=== PATIENT | male | born 1975 | race Caucasian/White ===

== ENCOUNTER 2016-05-08 10:58 | Observation (INO) | payer BC ==
[~2016-05-08] VITALS: Ht 177.8 cm; Wt 105.8 kg
[2016-05-08] MEDS ORDERED: MISCCAP80 PO (11:26)
[2016-05-08] MEDS ORDERED: CHOL1000 PO (11:26)
[2016-05-08 11:32] LABS: HEMATOCRIT 43.8 % (42-52); MEAN CELL VOLUME 84.1 fL (80-100); MEAN CORPUSCULAR HEMOGLOBIN 30.5 pg (25-34); MEAN CORPUSCULAR HGB CONC 36.3 g/dl (32-36); MEAN PLATELET VOLUME 11.8 fL (7.4-10.4); PLATELET COUNT 193 K/uL (130-400); RED BLOOD COUNT 5.21 M/uL (4.7-6.1); WHITE BLOOD COUNT 6.65 K/uL (4.8-10.8)
--- NOTE | 2016-05-08 11:37 | DIAGNOSTIC IMAGING REPORT ---
CHEST ONE VIEW PORTABLE CLINICAL HISTORY: syncope COMPARISON STUDY: No previous studies for comparison. FINDINGS: The heart is at the upper limits of normal in size. There is no failure. There is no focal pulmonary consolidation. There are no pleural effusions. There is a mild spinal curvature.[ IMPRESSION: No active disease in the chest. Electronically signed by: Fish Nolasco M.D. 05/08/2016 11:36 AM Dictated Date/Time: 05/08/2016 11:35 AM
[2016-05-08 11:46] LABS: PROTHROMBIN TIME (PATIENT) 10.9 SECONDS (9.0-12.0)
[2016-05-08 11:52] LABS: BUN/CREATININE RATIO 25.3 (10-20); CALCIUM 9.6 mg/dl (8.5-10.1); CREATININE 0.98 mg/dl (0.60-1.40); POTASSIUM 3.7 mmol/L (3.5-5.1)
[2016-05-08] MEDS ORDERED: SODIUM CHLORIDE 0.9% 1000ML 1,000 ML IV STA (11:52)
[2016-05-08] MEDS ORDERED: ACETAMINOPHEN 500 MG TAB PO STA (11:52)
--- NOTE | 2016-05-08 11:54 | EMERGENCY ROOM VISIT NOTE ---
History Report prepared by Asya: Jason Bae Under the Supervision of: Dr. Harvey Henry M.D. First contact with patient: 11:44 Chief Complaint: CARDIAC ASSESSMENT Stated Complaint: AFIB/SYNCOPE Nursing Triage Summary: patient states he was working stood up and "passed out hitting left side of head." patient reports having a "slight headache" patient has no hx of afib. patient is currently in afib. denies sob denies chest pain. History of Present Illness The patient is a 40 year old male who presents to the Emergency Room with complaints of a resolved episode of syncope that occurred at approximately 1030 today. The patient become lightheaded just prior to passing out after standing up at work today, however there was little warning. He hit his head when he fell , and has some head pain. He did not experience any lightheadedness prior to this morning. The patient denies any chest pain, shortness of breath, or abdominal pain. He also denies any recent palpitations. He does not have a history of syncope. The patient denies any history of atrial fibrillation, although his mother does. The patient occasionally drinks alcohol. He was not drinking heavily this weekend and only had one glass of wine last night. He does not smoke. He denies any major medical problems. Source of History: patient Onset: 1030 today Position: other (global) Quality: other (syncope) Timing: resolved Associated Symptoms: + headache, No SOB, No abdominal pain, No chest pain Review of Systems See HPI for pertinent positives & negatives. A total of 10 systems reviewed and were otherwise negative. Past Medical & Surgical Medical Problems: (1) Atrial fibrillation (2) No known health problems (3) Syncope and collapse Family History FH: atrial fibrillation Social History Smoking Status: Never Smoker Alcohol Use: occasionally Marital Status: Housing Status: lives with family Occupation Status: employed Current/Historical Medications Scheduled Apixaban (Eliquis), 5 MG PO BID Cholecalciferol (Vitamin D3), 5,000 INTER.UNIT PO DAILY Metoprolol Succinate (Toprol Xl), 1 TAB PO DAILY Probiotic Product (Probiotic), 1 CAP PO DAILY Allergies Coded Allergies: No Known Allergies (Unverified , 05/08/16) Physical Exam Vital Signs Date Time Temp Pulse Resp B/P Pulse Ox O2 Delivery O2 Flow Rate FiO2 05/08/16 12:29 77 20 123/81 97 Room Air 05/08/16 11:34 90 18 131/93 96 Room Air 05/08/16 11:07 85 05/08/16 11:02 96 Room Air 05/08/16 11:02 96 Room Air 05/08/16 11:02 36.5 87 18 131/93 96 Room Air Physical Exam GENERAL: Patient is a healthy-appearing well-nourished HEAD: There is a quarter-sized contusion on the left side of the top of his head. EYES: Ocular movements intact pupils equal and react to light OROPHARYNX mucous membranes are moist no exudates present no erythema or edema present NECK: Supple no nuchal rigidity CHEST: Good equal expansion LUNGS: Clear and equal to auscultation CARDIAC: Normal S1 and S2 ABDOMEN: Soft nontender no guarding BACK: No CVA tenderness EXTREMITIES: No pain upon palpation normal muscle strength in all groups no clubbing cyanosis or edema NEURO: Patient is following commands is answering questions appropriately. Alert and oriented x3 Cranial Nerves 2-12 grossly intact Medical Decision & Procedures ER Provider Diagnostic Interpretation: Radiology results as stated below per my review and radiologist interpretation: CHEST ONE VIEW PORTABLE CLINICAL HISTORY: syncope COMPARISON STUDY: No previous studies for comparison. FINDINGS: The heart is at the upper limits of normal in size. There is no failure. There is no focal pulmonary consolidation. There are no pleural effusions. There is a mild spinal curvature.[ IMPRESSION: No active disease in the chest. Electronically signed by: Fish Nolasco M.D. 05/08/2016 11:36 AM Dictated Date/Time: 05/08/2016 11:[address] HEAD WITHOUT CONTRAST (CT) CLINICAL HISTORY: Head pain status post trauma. Syncope. COMPARISON STUDY: No previous studies for comparison. TECHNIQUE: Axial CT of the brain is performed from the vertex to the skull base. IV contrast was not administered for this examination. CT DOSE: 788.63 mGycm FINDINGS: No intra or extra-axial mass lesions are visualized. There is no CT evidence of acute cortical infarction. There is no evidence of midline shift. There is no acute hemorrhage. No calvarial fractures are visualized. There is no evidence of pathologic ventricular dilatation. There is no evidence of acute sinusitis IMPRESSION: Normal noncontrast head CT. Electronically signed by: Fish Nolasco M.D. 05/08/2016 1:00 PM Dictated Date/Time: 05/08/2016 12:59 PM Laboratory Results 05/08/16 11:09 05/08/16 11:09 Test 05/08/16 11:09 05/08/16 11:24 Red Blood Count 5.21 M/uL (4.7-6.1) Mean Corpuscular Volume 84.1 fL (80-100) Mean Corpuscular Hemoglobin 30.5 pg (25-34) Mean Corpuscular Hemoglobin Concent 36.3 g/dl (32-36) RDW Standard Deviation 38.8 fL (36.4-46.3) RDW Coefficient of Variation 12.8 % (11.5-14.5) Mean Platelet Volume 11.8 fL (7.4-10.4) Prothrombin Time 10.9 SECONDS (9.0-12.0) Prothromb Time International Ratio 1.0 (0.9-1.1) Activated Partial Thromboplast Time 26.2 SECONDS (21.0-31.0) Partial Thromboplastin Ratio 1.0 Anion Gap 8.0 mmol/L (3-11) Est Creatinine Clear Calc Drug Dose 126.2 ml/min Estimated GFR () 112.9 Estimated GFR (Non- 97.4 BUN/Creatinine Ratio 25.3 (10-20) Calcium Level 9.6 mg/dl (8.5-10.1) Total Bilirubin 0.6 mg/dl (0.2-1) Aspartate Amino Transf (AST/SGOT) 24 U/L (15-37) Alanine Aminotransferase (ALT/SGPT) 31 U/L (12-78) Alkaline Phosphatase 48 U/L (45-117) Total Protein 8.0 gm/dl (6.4-8.2) Albumin 4.3 gm/dl (3.4-5.0) Globulin 3.7 gm/dl (2.5-4.0) Albumin/Globulin Ratio 1.2 (0.9-2) Lyme Disease IgG Antibody NEG (NEG) Lyme Disease IgM Antibody NEG (NEG) Bedside Troponin I 0.000 ng/ml (0-0.045) Labs reviewed by ED physician. Medications Administered Medications (Trade) Dose Ordered Sig/Gomez Route Start Time Stop Time Status Last Admin Dose Admin Sodium Chloride (Nss 1000ml) 1,000 ml @ 999 mls/hr Q1H1M STAT IV 05/08/16 11:52 05/08/16 12:52 DC 05/08/16 12:27 999 MLS/HR Acetaminophen (Tylenol Tab) 1,000 mg NOW STAT PO 05/08/16 11:52 05/08/16 11:53 DC 05/08/16 12:26 1,000 MG Acetaminophen (Tylenol Tab) 650 mg Q4H PRN PO 05/08/16 12:45 05/09/16 15:23 DC 05/08/16 17:34 650 MG ECG Indication: syncope Rate (beats per minute): 86 Rhythm: atrial fibrillation Findings: no acute ischemic change, other (no PVCs) Comparison ECG Date: no prior available ED Course 1148: Past medical records reviewed. The patient was evaluated in room C6. A complete history and physical examination was performed. 1152: Tylenol 1000 mg PO, NSS 1000 ml @ 999 mls/hr. 1226: Discussed the case with ROCHELLE Driver Cardiology. He recommends medical admission. 1238: Spoke with ROCHELLE Mcfarland Hospitalist. The patient will be evaluated. Medical Decision Differential diagnosis: Etiologies such as vasovagal event, atrial fibrillation, infection, hypoglycemia , electrolyte abnormalities, cardiac sources, intracerebral event, toxicologic, neurologic, as well as others were entertained. This is a 40-year-old male who presents emergency department complaining of syncopal episode. The patient is in atrial fibrillation however has no idea that he is in the atrial fibrillation denies any chest pain or palpitations. I' m concerned that the atrial fibrillation may have caused the syncopal episode. I did discuss the case with the cnc mill operator who asked that the patient be admitted to the hospital. Patient was given normal saline bolus. He has a normal CAT scan of the head. Patient family were in agreement with treatment plan. Consults Time Called: 1220 Consulting Physician: ROCHELLE Driver Cardiology. Returned Call: [phone]: Discussed the case with ROCHELLE Driver Cardiology. He recommends medical admission. Additional Consults: Time Called: 1230 Consulted Physician: ROCHELLE Mcfarland Hospitalist. Returned Call: 1238 Additional Comments: 1238: Spoke with ROCHELLE Mcfarland Hospitalist. The patient will be evaluated. Impression Primary Impression: Syncope Additional Impression: Atrial fibrillation Scribe Attestation The scribe's documentation has been prepared under my direction and personally reviewed by me in its entirety. I confirm that the note above accurately reflects all work, treatment, procedures, and medical decision making performed by me. Departure Information Dispostion Being Evaluated By Hospitalist Prescriptions Metoprolol Succinate (TOPROL XL) 50 Mg Tab 1 TAB PO DAILY for 30 Days, #30 TAB 5 Refills Prov: Mynor Crockett, D.OElizabeth 05/09/16 Apixaban (ELIQUIS) 5 Mg Tab 5 MG PO BID for 30 Days, #60 TAB Prov: Gissel Simmons PA-C 05/09/16 Referrals No Doctor, Assigned (PCP) Patient Instructions [facility] Problem Qualifiers Primary Impression: Syncope Syncope type: unspecified Qualified Codes: R55 - Syncope and collapse Additional Impression: Atrial fibrillation Atrial fibrillation type: unspecified Qualified Codes: I48.91 - Unspecified atrial fibrillation
[2016-05-08 11:57] LABS: ALB/GLOB RATIO 1.2 (0.9-2); CKMB/CK RATIO 1.3 (0-3.0)
[2016-05-08] MEDS ORDERED: ONDANSETRON INJ 2 MG/ML 2 ML VIAL IV PRN (12:45)
[2016-05-08] MEDS ORDERED: ACETAMINOPHEN 325 MG TAB PO PRN (12:45)
--- NOTE | 2016-05-08 13:02 | DIAGNOSTIC IMAGING REPORT ---
CT HEAD WITHOUT CONTRAST (CT) CLINICAL HISTORY: Head pain status post trauma. Syncope. COMPARISON STUDY: No previous studies for comparison. TECHNIQUE: Axial CT of the brain is performed from the vertex to the skull base. IV contrast was not administered for this examination. CT DOSE: 788.63 mGycm FINDINGS: No intra or extra-axial mass lesions are visualized. There is no CT evidence of acute cortical infarction. There is no evidence of midline shift. There is no acute hemorrhage. No calvarial fractures are visualized. There is no evidence of pathologic ventricular dilatation. There is no evidence of acute sinusitis IMPRESSION: Normal noncontrast head CT. Electronically signed by: Fish Nolasco M.D. 05/08/2016 1:00 PM Dictated Date/Time: 05/08/2016 12:59 PM
[2016-05-08 13:45] LABS: LYME DISEASE AB IGG NEG (NEG)
[2016-05-08] MEDS ORDERED: IV FLUIDS COMPLETED PRN (13:45)
[2016-05-08 13:46] LABS: LYME DISEASE AB IGM NEG (NEG)
[2016-05-08 14:00] VITALS: BP 141/86; PULSE 74; TEMP 36.9; O2SAT 98; Ht 177.8 cm; Wt 105.8 kg
--- NOTE | 2016-05-08 14:46 | History and Physical ---
History & Physical Date & Time of Service: May 08, 2016 at 14:35 Chief Complaint: Atrial Fibrillation, Syncope & Collapse Primary Care Physician: Gustavo Cruz M.D. History of Present Illness Source: patient, family, hospital records 40 yo male with medical history of pre-diabetes, presented to the ED after having a syncopal episode at work. No history of syncope. The patient had been standing for approximately one hour when he started to feel light headed and dizzy and then passed out. Witnesses saw the fall, he struck his head on concrete. He was unconscious for approximately 20 seconds and then woke up. No tonic clonic activity witnessed. He was oriented completely when he woke, he had a mild headache from hitting his head. No chest pain or palpitations. He denies any recent illnesses. He has been eating well, even recently he has been on a low carbohydrate diet. Never has any chest pain or palpitations when he exerts himself. His mother has a history of atrial fibrillation. No personal history of congenital heart disease. He drinks alcohol but no binge drinking recently, had a glass of red wine last night. Past Medical/Surgical History Pre-diabetes Kidney stone as a child Family History FH: atrial fibrillation Mother - atrial fibrillation Lung cancer, heart disease Social History Smoking Status: Never Smoker Alcohol Use: occasionally Marital Status: Occupational Status: employed Immunizations History of Influenza Vaccine: No Multi-Drug Resistant Organisms History of MDRO: No Allergies Coded Allergies: No Known Allergies (Unverified , 05/08/16) Home Medications Scheduled Cholecalciferol (Vitamin D3), 5,000 INTER.UNIT PO DAILY Probiotic Product (Probiotic), 1 CAP PO DAILY Review of Systems Constitutional: + problem reported (headache), No chills, No fatigue, No fever , No sweats, No weakness, No weight loss Eyes: No diplopia, No discharge, No eye pain, No problem reported, No redness, No worsening of vision ENT: No dental problems, No hearing loss, No nasal symptoms, No problem reported, No sore throat, No tinnitus, No trouble swallowing, No unusual epistaxis Respiratory: No cough, No dyspnea at rest, No dyspnea on exertion, No hemoptysis, No problem reported, No shortness of breath, No sputum, No wheezing Cardiovascular: No PND, No chest pain, No claudication, No edema, No orthopnea , No palpitations, No problem reported Abdomen: No GI bleeding, No constipation, No diarrhea, No nausea, No pain, No problem reported, No vomiting Musculoskeletal: No calf pain, No joint pain, No muscle pain, No problem reported, No swelling Genitourinary - Male: No dysuria, No hematuria, No urinary frequency, No urinary urgency Neurologic: No balance problems, No memory loss, No numbness/tingling, No paralysis, No problem reported, No vertigo, No weakness Psychiatric: No anhedonism, No anxiety, No depression symptoms, No insomnia, No problem reported, No substance abuse Endocrine: No excessive thirst, No excessive urination, No fatigue, No problem reported Hematologic / Lymphatic: No abnormal bleeding/bruising, No clotting problems, No night sweats, No problem reported, No swollen lymph nodes Integumentary: No bleeding, No color change, No itch, No new/changing skin lesions, No problem reported, No rash Allergic / Immunologic: No environmental allergies, No food allergies, No frequent infections, No hives, No pet sensitivities, No poor healing, No problem reported, No prolonged convalescence, No seasonal allergies Physical Exam Vital Signs Date Time Temp Pulse Resp B/P Pulse Ox O2 Delivery O2 Flow Rate FiO2 05/08/16 14:00 36.9 74 20 141/86 98 Room Air 05/08/16 13:39 84 18 116/78 97 Room Air 05/08/16 13:28 87 05/08/16 12:29 77 20 123/81 97 Room Air 05/08/16 11:34 90 18 131/93 96 Room Air 05/08/16 11:07 85 05/08/16 11:02 96 Room Air 05/08/16 11:02 96 Room Air 05/08/16 11:02 36.5 87 18 131/93 96 Room Air General Appearance: WD/WN, no apparent distress Head: normocephalic, atraumatic Eyes: normal inspection, EOMI, sclerae normal ENT: normal ENT inspection, hearing grossly normal, pharynx normal Neck: supple, no adenopathy, no JVD, trachea midline Respiratory/Chest: chest non-tender, lungs clear, normal breath sounds, no respiratory distress, no accessory muscle use Cardiovascular: no edema, no gallop, no JVD, no murmur, normal peripheral pulses, + irregularly irregular Abdomen/GI: normal bowel sounds, non tender, soft, no organomegaly Back: normal inspection, no CVA tenderness, no muscle spasm, normal range of motion Extremities/Musculoskelatal: normal inspection, no calf tenderness, normal capillary refill, no pedal edema, normal range of motion Neurologic/Psych: lead scientist II-XII nml as tested, no motor/sensory deficits, alert, normal mood/affect, normal reflexes, oriented x 3 Skin: normal color, warm/dry, no rash Lymphatic: no adenopathy Diagnostics Laboratory Results Results Past 24 Hours Test 05/08/16 11:09 05/08/16 11:24 Range/Units White Blood Count 6.65 4.8-10.8 K/uL Red Blood Count 5.21 4.7-6.1 M/uL Hemoglobin 15.9 14.0-18.0 g/dL Hematocrit 43.8 42-52 % Mean Corpuscular Volume 84.1 80-100 fL Mean Corpuscular Hemoglobin 30.5 25-34 pg Mean Corpuscular Hemoglobin Concent 36.3 32-36 g/dl RDW Standard Deviation 38.8 36.4-46.3 fL RDW Coefficient of Variation 12.8 11.5-14.5 % Platelet Count 193 130-400 K/uL Mean Platelet Volume 11.8 7.4-10.4 fL Prothrombin Time 10.9 9.0-12.0 SECONDS Prothromb Time International Ratio 1.0 0.9-1.1 Activated Partial Thromboplast Time 26.2 21.0-31.0 SECONDS Partial Thromboplastin Ratio 1.0 Sodium Level 139 136-145 mmol/L Potassium Level 3.7 3.5-5.1 mmol/L Chloride Level 104 98-107 mmol/L Carbon Dioxide Level 27 21-32 mmol/L Anion Gap 8.0 3-11 mmol/L Blood Urea Nitrogen 25 7-18 mg/dl Creatinine 0.98 0.60-1.40 mg/dl Est Creatinine Clear Calc Drug Dose 126.2 ml/min Estimated GFR () 112.9 Estimated GFR (Non- 97.4 BUN/Creatinine Ratio 25.3 10-20 Random Glucose 94 70-99 mg/dl Calcium Level 9.6 8.5-10.1 mg/dl Total Bilirubin 0.6 0.2-1 mg/dl Aspartate Amino Transf (AST/SGOT) 24 15-37 U/L Alanine Aminotransferase (ALT/SGPT) 31 12-78 U/L Alkaline Phosphatase 48 45-117 U/L Total Creatine Kinase 472 39-308 U/L Creatine Kinase MB 6.1 0.5-3.6 ng/ml Creatine Kinase MB Ratio 1.3 0-3.0 Total Protein 8.0 6.4-8.2 gm/dl Albumin 4.3 3.4-5.0 gm/dl Globulin 3.7 2.5-4.0 gm/dl Albumin/Globulin Ratio 1.2 0.9-2 Lyme Disease IgG Antibody NEG NEG Lyme Disease IgM Antibody NEG NEG Bedside Troponin I 0.000 0-0.045 ng/ml Diagnostic Radiology CT head - no intracranial abnormality CXR normal EKG atrial fibrillation, rate 86, no ST changes or TW changes Impression Assessment and Plan 40 yo male presenting with syncopal episode and found to have atrial fibrillation on EKG - New onset atrial fibrillation: unclear etiology in otherwise healthy 40 yo also, odd that he would not have RVR since he is young check Echo, TSH, cycle enzymes, Lyme screen negative normal K and renal function consult cardiology for recommendations CHADS score 0, no plans for anticoagulation at this point - Syncope: suspect due to arrhythmia, could have had RVR at time of syncope CT head without bleeding no focal neurologic deficits, will not get MRI cycle enzymes to rule out [place] orthostatic vitals - DVT prophylaxis: Lovenox Level of Care Telemetry Advanced Directives Existing Living Will: No Existing Power of Unmanned Aircraft Systems Roboticist: No Resuscitation Status FULL RESUSCITATION VTE Prophylaxis VTE Risk Assessment Done? Y/N: Yes Risk Level: Low Given or contraindicated: Enoxaparin (Lovenox)SQ Additional Copies To Gustavo Cruz M.D.
[2016-05-08 15:35] VITALS: BP 134/88; PULSE 94; TEMP 36.6; O2SAT 92
[2016-05-08] MEDS ORDERED: ENOXAPARIN 40 MG/0.4 ML SYR SC SCH (16:00)
--- NOTE | 2016-05-08 17:56 | Cardiology Consultation ---
Cardiology Consultation Date of Consultation: May 08, 2016. Requesting Physician: Dr. Crockett Reason for Consultation: Syncope, atrial fibrillation Pt evaluation today including: conversation w/ patient, physical exam, lab review, review of studies, review of inpatient medication list History of Present Illness This is a very pleasant 40-year-old gentleman who presents with a syncopal event. 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 He tells me they said he was out for about 10 seconds, he fell down and struck his head on the floor which she does not recall. He has never had syncope before, he did not notice palpitations. He awoke quickly and there is no evidence of seizure activity reported. He was noted to be in atrial fibrillation after the event, however he is unaware of the arrhythmia now and is not clear how long he has had. He does note that both his parents have atrial fibrillation. He probably hasn't seen a physician for several years. He does exercise regularly at the gym and has noticed no change in his exercise ability. He does monitor his heart rate sometimes using the machines, he notes that occasionally will get up to 200 bpm but he's not sure if that is real or an artifact and he does not recall that being much different over the last year and a half. He has noted no change in his exercise ability, he has been trying to lose weight his weight has remained fairly steady. He does notice that he has a "lump in his throat" when his heart rate is fast and he is exercising vigorously, he also notes that after admission today he had a discomfort/shoulder and his left arm. He doesn't recall having left arm or shoulder discomfort with exertion. He doesn't recall ever having an electrocardiogram, echocardiogram or stress test. Past Medical/Surgical History Kidney stones Family History FH: atrial fibrillation Social History Smoking Status: Never Smoker History of Alcohol Use: Yes (social) Review of Systems Constitutional: No fever, No weakness, No weight loss Respiratory: No cough, No dyspnea on exertion, No shortness of breath, No wheezing Cardiac: + problem reported (syncope), + see HPI, No PND, No chest pain, No edema, No orthopnea, No palpitations Abdomen: No GI bleeding, No diarrhea, No nausea, No pain, No vomiting Male : No nocturia more than once/night, No sexual dysfunction, No slowing stream, No urinary frequency Neurologic: No balance problems, No numbness/tingling, No paralysis, No weakness Heme: No abnormal bleeding/bruising, No clotting problems Endo: No fatigue Skin: No problem reported All Other Systems: Reviewed and Negative Allergies Coded Allergies: No Known Allergies (Unverified , 05/08/16) Medications Current Inpatient Medications Medications (Trade) Dose Ordered Sig/Gomez Route Start Time Stop Time Status Last Admin Dose Admin Enoxaparin Sodium (Lovenox Inj) 40 mg Q24H SC 05/08/16 16:00 06/07/16 15:59 05/08/16 16:00 40 MG Acetaminophen (Tylenol Tab) 650 mg Q4H PRN PO 05/08/16 12:45 06/07/16 12:44 05/08/16 17:34 650 MG Ondansetron HCl (Zofran Inj) 4 mg Q6H PRN IV 05/08/16 12:45 06/07/16 12:44 Miscellaneous (Iv Fluids Completed) 1 ea PRN PRN N/A 05/08/16 13:45 05/08/17 13:44 Influenza Virus Vaccine Quadrival (Flu Vaccine) 0.5 ml ONCE ONCE IM. 05/08/16 21:00 05/08/16 21:01 Physical Exam Vital Signs Past 12 Hours Date Time Temp Pulse Resp B/P Pulse Ox O2 Delivery O2 Flow Rate FiO2 05/08/16 16:00 Room Air 05/08/16 15:35 36.6 94 19 134/88 92 Room Air 05/08/16 14:00 36.9 74 20 141/86 98 Room Air 05/08/16 13:39 84 18 116/78 97 Room Air 05/08/16 13:28 87 05/08/16 12:29 77 20 123/81 97 Room Air 05/08/16 11:34 90 18 131/93 96 Room Air 05/08/16 11:07 85 05/08/16 11:02 96 Room Air 05/08/16 11:02 96 Room Air 05/08/16 11:02 36.5 87 18 131/93 96 Room Air Constitutional: General Apperance: heathly-appearing Level of Distress: NAD Psychiatric: Mental Status: active & alert Head: normocephalic Eyes: EOM: EOMI ENMT: normal ENT inspection, hearing grossly normal Neck: supple, no masses Lungs: Respiratory effort: no dyspnea, good air movement Auscultation: breath sounds normal, no wheezing Cardiovascular: Heart Auscultation: no murmurs, no rubs, no gallops, irregular rate rhythm Peripheral Pulses: Bruits: none appreciated Abdomen: Bowel Sounds: normal Inspection & Palpation: soft, no tenderness, guarding & rebound, no masses Musculoskeletal: normal strength (5/5 throughout) Extremities: no edema Neurologic: Cranial Nerves: grossly intact Sensation: grossly intact Data Laboratory Results: Last 24 Hours Test 05/08/16 11:09 05/08/16 11:24 White Blood Count 6.65 K/uL Red Blood Count 5.21 M/uL Hemoglobin 15.9 g/dL Hematocrit 43.8 % Mean Corpuscular Volume 84.1 fL Mean Corpuscular Hemoglobin 30.5 pg Mean Corpuscular Hemoglobin Concent 36.3 g/dl RDW Standard Deviation 38.8 fL RDW Coefficient of Variation 12.8 % Platelet Count 193 K/uL Mean Platelet Volume 11.8 fL Prothrombin Time 10.9 SECONDS Prothromb Time International Ratio 1.0 Activated Partial Thromboplast Time 26.2 SECONDS Partial Thromboplastin Ratio 1.0 Sodium Level 139 mmol/L Potassium Level 3.7 mmol/L Chloride Level 104 mmol/L Carbon Dioxide Level 27 mmol/L Anion Gap 8.0 mmol/L Blood Urea Nitrogen 25 mg/dl Creatinine 0.98 mg/dl Est Creatinine Clear Calc Drug Dose 126.2 ml/min Estimated GFR () 112.9 Estimated GFR (Non- 97.4 BUN/Creatinine Ratio 25.3 Random Glucose 94 mg/dl Calcium Level 9.6 mg/dl Total Bilirubin 0.6 mg/dl Aspartate Amino Transf (AST/SGOT) 24 U/L Alanine Aminotransferase (ALT/SGPT) 31 U/L Alkaline Phosphatase 48 U/L Total Creatine Kinase 472 U/L Creatine Kinase MB 6.1 ng/ml Creatine Kinase MB Ratio 1.3 Total Protein 8.0 gm/dl Albumin 4.3 gm/dl Globulin 3.7 gm/dl Albumin/Globulin Ratio 1.2 Lyme Disease IgG Antibody NEG Lyme Disease IgM Antibody NEG Bedside Troponin I 0.000 ng/ml Imaging: A head CT scan was unremarkable as was a chest x-ray An echocardiogram is pending EKG: On arrival atrial fibrillation at 86 bpm, normal electrocardiogram otherwise Telemetry reviewed: Atrial fibrillation with a controlled response since arrival, heart rate averaging about 80 bpm and not exceeding 100. Assessment & Plan #1. Syncope: He has had an isolated episode of syncope which occurred suddenly while standing, a vagal etiology is possible but he has never had it before and that would not explain the presence of atrial fibrillation. I'm not sure the direct relationship with atrial fibrillation but perhaps he had a pause in his rhythm before going into atrial fibrillation which would explain the syncope. I would continue to monitor him overnight, we could consider tilt testing although it is probably low yield. We may want to consider some type of chcf monitoring if telemetry is negative. #2. Atrial fibrillation: We don't know the duration of his atrial fibrillation. We need to exclude structural heart disease (an echo is pending) but based on his symptoms and exam he may have lone atrial fibrillation. We probably should try to return him to sinus rhythm, that would require anticoagulation and his rate is controlled since no other medications would be indicated at this time. For the long run I don't know if he needs anticoagulation but over the short term we probably should. We may not need to do that tonight, especially after his traumatic fall, therefore I've not start him on anticoagulation. Thank you for allowing me to participate in his care.
[2016-05-08 19:14] VITALS: BP 115/80; PULSE 84; TEMP 36.9; O2SAT 96
[2016-05-08 20:00] VITALS: O2SAT 96
[2016-05-08 20:10] LABS: CKMB/CK RATIO 1.2 (0-3.0)
[2016-05-08] MEDS ORDERED: INFLUENZA VIRUS QUAD VACCINE 0.5 ML SYR IM. ONE (21:00)
[2016-05-08] MEDS ORDERED: INFLUENZA ADMINISTRATION CHARGE ONE (21:00)
[2016-05-08 23:06] VITALS: BP 93/56; PULSE 60; TEMP 36.7; O2SAT 97
[2016-05-09] VITALS (7 sets, daily range): BP systolic 101–145; BP diastolic 67–90; PULSE 75–105; TEMP 36.6–36.7; O2SAT 94–96
[2016-05-09 03:35] LABS: CKMB/CK RATIO 1.2 (0-3.0)
--- NOTE | 2016-05-09 08:29 | Hospitalist Progress Note ---
Hospitalist Progress Note Date of Service May 09, 2016. Objective Vital Signs Date Time Temp Pulse Resp B/P Pulse Ox O2 Delivery O2 Flow Rate FiO2 05/09/16 04:00 Room Air 05/09/16 02:54 36.6 75 16 101/67 94 Room Air 05/09/16 00:01 Room Air 05/08/16 23:06 36.7 60 16 93/56 97 Room Air 05/08/16 20:00 96 Room Air 05/08/16 19:14 36.9 84 18 115/80 96 Room Air 05/08/16 16:00 Room Air 05/08/16 15:35 36.6 94 19 134/88 92 Room Air 05/08/16 14:00 36.9 74 20 141/86 98 Room Air 05/08/16 13:39 84 18 116/78 97 Room Air 05/08/16 13:28 87 05/08/16 12:29 77 20 123/81 97 Room Air 05/08/16 11:34 90 18 131/93 96 Room Air 05/08/16 11:07 85 05/08/16 11:02 96 Room Air 05/08/16 11:02 96 Room Air 05/08/16 11:02 36.5 87 18 131/93 96 Room Air Laboratory Results Last 24 Hours Test 05/08/16 11:09 05/08/16 11:24 05/08/16 19:25 05/09/16 02:52 White Blood Count 6.65 K/uL Red Blood Count 5.21 M/uL Hemoglobin 15.9 g/dL Hematocrit 43.8 % Mean Corpuscular Volume 84.1 fL Mean Corpuscular Hemoglobin 30.5 pg Mean Corpuscular Hemoglobin Concent 36.3 g/dl RDW Standard Deviation 38.8 fL RDW Coefficient of Variation 12.8 % Platelet Count 193 K/uL Mean Platelet Volume 11.8 fL Prothrombin Time 10.9 SECONDS Prothromb Time International Ratio 1.0 Activated Partial Thromboplast Time 26.2 SECONDS Partial Thromboplastin Ratio 1.0 Sodium Level 139 mmol/L Potassium Level 3.7 mmol/L Chloride Level 104 mmol/L Carbon Dioxide Level 27 mmol/L Anion Gap 8.0 mmol/L Blood Urea Nitrogen 25 mg/dl Creatinine 0.98 mg/dl Est Creatinine Clear Calc Drug Dose 126.2 ml/min Estimated GFR () 112.9 Estimated GFR (Non- 97.4 BUN/Creatinine Ratio 25.3 Random Glucose 94 mg/dl Calcium Level 9.6 mg/dl Total Bilirubin 0.6 mg/dl Aspartate Amino Transf (AST/SGOT) 24 U/L Alanine Aminotransferase (ALT/SGPT) 31 U/L Alkaline Phosphatase 48 U/L Total Creatine Kinase 472 U/L 420 U/L 305 U/L Creatine Kinase MB 6.1 ng/ml 5.1 ng/ml 3.6 ng/ml Creatine Kinase MB Ratio 1.3 1.2 1.2 Total Protein 8.0 gm/dl Albumin 4.3 gm/dl Globulin 3.7 gm/dl Albumin/Globulin Ratio 1.2 Lyme Disease IgG Antibody NEG Lyme Disease IgM Antibody NEG Bedside Troponin I 0.000 ng/ml Troponin I < 0.015 ng/ml < 0.015 ng/ml Thyroid Stimulating Hormone (TSH) 2.880 uIu/ml Assessment and Plan 40 yo male presenting with syncopal episode and found to have atrial fibrillation on EKG New onset atrial fibrillation: unclear etiology in otherwise healthy 40 yo - check Echo, TSH, trop negative x 2 sets, Lyme screen negative - normal K and renal function - cardiology on board- will wait for echo and determine if the patient needs to be on anticoagulation, CHADS score 0 Syncope: suspect due to arrhythmia, could have had RVR at time of syncope - CT head without bleeding, no focal neurologic deficits,no indication for MRI - Trop and CKMB negative x 2 sets, await final - orthostatic vitals have been negative DVT prophylaxis: Lovenox, oob CODE STATUS: FULL Disposition: From home
--- NOTE | 2016-05-09 09:49 | Discharge Instructions ---
Discharge Instructions Date of Service May 09, 2016. Admission Reason for Admission: Atrial Fibrillation, Syncope & Collapse Discharge Discharge Diagnosis / Problem: Atrial Fibrillation Discharge Goals Goal(s): Decrease discomfort, Improve function, Increase independence, Improve disease control Activity Recommendations Activity Limitations: resume your previous activity Lifting Limitations: gradually increase as tolerated Exercise/Sports Limitations: gradually increase as tolerated May Resume Sexual Activity: when tolerated Shower/Bathe: no limitations Driving or Machine Use: DO NOT DRIVE until after one month, and clearance from cardiology standpoint . Instructions / Follow-Up Instructions / Follow-Up You were admitted to [facility] with syncope (passing out) and collapse and diagnosed with atrial fibrillation (irregular heartbeat). You were evaluated with and echocardiogram - this is an ultrasound of the heart which evaluates it's function which was healthy and within normal limits. Cardiology was consulted and recommended that you DO NOT DRIVE until they clear you to do so. Follow up with cardiology within 1 week to set up an event recorder to identify how your heart is working. This will be scheduled by the outsole leveler office and you will be called with details for an appointment. During your stay here you were started on an anticoagulant, ie. blood thinner to reduce the risk of clot formation from atrial fibrillation. You have been placed on Eliquis 5 mg twice daily. Do NOT miss a dose of this medication! Follow up with your outsole leveler if you have further questions or concerns regarding this medication. Continue taking all other medications as prescribed. Follow up with your primary care physician within 1 week. Follow up with cardiology within 1-2 weeks. Current Hospital Diet Patient's current hospital diet: Regular Diet Discharge Diet Recommended Diet: AHA Diet (Heart Healthy) Procedures Procedures Performed: Echocardiogram Pending Studies Studies pending at discharge: no Medical Emergencies . Who to Call and When: Medical Emergencies: If at any time you feel your situation is an emergency, please call 911 immediately. . Non-Emergent Contact Non-Emergency issues call your: Primary Care Provider Call Non-Emergent contact if: temperature is above 100.5, you have any medication questions lightheadedness, dizziness, weakness, shortness of breath at rest or with exertion, leg cramping or pain. Call 911 or go directly to the emergency room if you experience chest pain, chest pressure or tightness, worsening shortness of breath, severe headache, of if you have other concerns regarding your health. . Past History Medical & Surgical History: (1) Atrial fibrillation (2) Syncope and collapse . "Provider Documentation" section prepared by Lynette Simmons. VTE Core Measure Inpt VTE Proph given/why not?: Enoxaparin (Lovenox)ANNIE, TElizabethEJose Stockings, SCD's
--- NOTE | 2016-05-09 10:55 | ECHOCARDIOGRAM REPORT ---
*NOTICE TO RECEIVING REPUBLICAN AGENCY This information is strictly Confidential and protected under [place] law. [place] law prohibits you from making any further disclosure of this information unless further disclosure is expressly permitted by the written consent of the person to whom it pertains or is authorized by law. A general authorization for the release of medical or other information is not sufficient for this purpose. Hospital accepts no responsibility if the information is made available to any other person, INCLUDING THE PATIENT. Interpretation Summary * Name: CHRISTA SIM Study Date: 05/09/2016 07:14 AM BP: 101/67 mmHg * Patient Location: C.2T\S\S242\S\1 HR: 75 * : 1975 (M/d/yyyy) Gender: Male Height: 70 in * Age: 40 yrs Ethnicity: CA Weight: 239 lb * Ordering Physician: Mynor Crockett * Performed By: Mima Bolanos * * Reason For Study: A-FIB * BSA: 2.3 m2 * -- Conclusions -- * 1. Normal left ventricular size and systolic function. EF 55-60%. No regional wall motion abnormalities. No left ventricular hypertrophy. * 2. No significant valvular abnormalities. * 3. Normal estimated right ventricular systolic pressure; 20 mmHg. * 4. Technically difficult study, enhanced with IV Definity. * 5. No prior study available for comparison. Procedure Details * A complete two-dimensional transthoracic echocardiogram was performed (2D, M-mode, Doppler and color flow Doppler). * A contrast injection of Definity was performed to improve assessment of LV function. * Contrast was injected into an intravenous site in the left arm. * One vial of Definity ultrasound contrast was diluted in normal saline to a total volume of 10 ml. A total of '2' ml of solution was administered during imaging. * Lot # [id number] of Definity utilized for procedure. * Expiration date 06/05. * The attending nurse who injected the contrast agent was EMANUEL ESCOBAR RN. Left Ventricle * The left ventricle is normal in size. * There is normal left ventricular wall thickness. * Ejection Fraction = 55-60%. * Left ventricular systolic function is normal. * No regional wall motion abnormalities noted. Right Ventricle * The right ventricle is normal in size and function. * The right ventricular systolic function is normal as assessed by tricuspid annular plane systolic excursion (TAPSE) (normal >1.5 cm). Atria * The left atrial size is normal. * Right atrium not well visualized. * There is no evidence of atrial septal defect, but resolution does not allow assessment for a patent foramen ovale. Mitral Valve * The mitral valve is normal in structure and function. * There is no mitral valve stenosis. * There is trace mitral regurgitation. Tricuspid Valve * The tricuspid valve is normal in structure and function. * There is no tricuspid stenosis. * There is mild tricuspid regurgitation. Aortic Valve * The aortic valve is trileaflet. * No hemodynamically significant valvular aortic stenosis. * No aortic regurgitation is present. Pulmonic Valve * The pulmonary valve is inadequately visualized, but the Doppler data is adequate for interpretation. * There is no pulmonic valvular stenosis. * Mild pulmonic valvular regurgitation. Great Vessels * The aortic root is normal size. * Ascending aorta of normal dimension Pericardium/Pleural * There is no pericardial effusion. Great Vessels * IVC normal in size. MMode 2D Measurements and Calculations IVSd 1.1 cm IVSs 1.8 cm LVIDd 4.7 cm LVIDs 3.2 cm LVPWd 1.1 cm LVPWs 1.9 cm IVS/LVPW 0.96 FS 32.7 % EDV(Teich) 102.4 ml ESV(Teich) 39.8 ml EF(Teich) 61.1 % EDV(cubed) 103.9 ml ESV(cubed) 31.7 ml EF(cubed) 69.5 % % IVS thick 66.2 % % LVPW thick 69.3 % LV mass(C)d 185.1 grams LV mass(C)dI 82.2 grams/m\S\2 LV mass(C)s 238.1 grams LV mass(C)sI 105.8 grams/m\S\2 SV(Teich) 62.6 ml SI(Teich) 27.8 ml/m\S\2 SV(cubed) 72.3 ml SI(cubed) 32.1 ml/m\S\2 Ao root diam 3.3 cm Ao root area 8.7 cm\S\2 ACS 1.9 cm asc Aorta Diam 3.0 cm LVOT diam 2.6 cm LVOT area 5.2 cm\S\2 LVAd ap4 26.0 cm\S\2 LVLd ap4 8.1 cm EDV(MOD-sp4) 67.8 ml EDV(sp4-el) 71.2 ml LVAs ap4 14.5 cm\S\2 LVLs ap4 7.1 cm ESV(MOD-sp4) 24.6 ml ESV(sp4-el) 25.1 ml EF(MOD-sp4) 63.7 % EF(sp4-el) 64.7 % LVAd ap2 27.5 cm\S\2 LVLd ap2 7.7 cm EDV(MOD-sp2) 81.9 ml EDV(sp2-el) 83.7 ml LVAs ap2 16.7 cm\S\2 LVLs ap2 7.0 cm ESV(MOD-sp2) 34.7 ml ESV(sp2-el) 34.2 ml EF(MOD-sp2) 57.6 % EF(sp2-el) 59.1 % LVLd %diff -6.70 % EDV(MOD-bp) 74.8 ml LVLs %diff -2.34 % ESV(MOD-bp) 28.9 ml EF(MOD-bp) 61.4 % SV(MOD-sp4) 43.2 ml SI(MOD-sp4) 19.2 ml/m\S\2 SV(MOD-sp2) 47.2 ml SI(MOD-sp2) 21.0 ml/m\S\2 SV(MOD-bp) 45.9 ml SI(MOD-bp) 20.4 ml/m\S\2 SV(sp4-el) 46.1 ml SI(sp4-el) 20.5 ml/m\S\2 SV(sp2-el) 49.5 ml SI(sp2-el) 22.0 ml/m\S\2 Doppler Measurements and Calculations MV E max al 80.8 cm/sec MV dec time 0.21 sec Ao V2 max 90.6 cm/sec Ao max PG 3.3 mmHg Ao max PG (full) 0.79 mmHg ROGER(V,A) 4.5 cm\S\2 ROGER(V,D) 4.5 cm\S\2 LV V1 max PG 2.5 mmHg LV V1 max 78.9 cm/sec TV E max al 43.0 cm/sec PA V2 max 62.3 cm/sec PA max PG 1.6 mmHg PI end-d al 101.2 cm/sec TR max al 207.3 cm/sec RVSP(TR) 20.2 mmHg RAP systole 3.0 mmHg
--- NOTE | 2016-05-09 12:47 | Discharge Summary ---
Discharge Summary Date of Service May 09, 2016. Discharge Summary Admission Date: May 08, 2016 at 12:46 Discharge Date: May 09, 2016 Discharge Disposition: Home Principal Diagnosis: Atrial fibrillation Problems/Secondary Diagnoses: syncope and collapse d/t atrial fibrillation, obesity Immunizations: Have You Had Influenza Vaccine: No Procedures: CXR 05/08/16 IMPRESSION: No active disease in the chest. CT HEAD WITHOUT CONTRAST 05/08/16 IMPRESSION: Normal noncontrast head CT. ECHOCARDIOGRAM 05/09/16 * -- Conclusions -- * 1. Normal left ventricular size and systolic function. EF 55-60%. No regional wall motion abnormalities. No left ventricular hypertrophy. * 2. No significant valvular abnormalities. * 3. Normal estimated right ventricular systolic pressure; 20 mmHg. * 4. Technically difficult study, enhanced with IV Definity. * 5. No prior study available for comparison. Consultations: Cardiology Medication Reconciliation New Medications: Apixaban (Eliquis) 5 Mg Tab 5 MG PO BID for 30 Days, #60 TAB Continued Medications: Cholecalciferol (Vitamin D3) 1,000 Unit Tab 5000 INTER.UNIT PO DAILY for 90 Days, TAB 3 Refills Probiotic Product (Probiotic) 1 Cap Cap 1 CAP PO DAILY Discharge Exam The patient was seen and examined this morning. Patient reports feeling well. He denies having any chest pain, shortness of breath, flutter, palpitation, headache. He reports that an echo was done this morning. The patient was spoken to about anticoagulation, he states "that is rat poison" but is agreeable to taking the medication if needed. ROS: Constitutional: No fever, chills, sweats, fatigue or weakness Eyes: No diplopia, no changes in vision ENT: No sore throat, tinnitus, or trouble swallowing Respiratory: No shortness of breath, No dyspnea at rest or on exertion, no cough or sputum Cardiovascular: No chest pain, palpitations, or flutter Abdomen: No pain, No constipation, No diarrhea, No nausea, No vomiting Musculoskeletal: No calf pain, No joint pain, No swelling Genitourinary : No dysuria or urinary frequency, No hematuria Neurologic: No numbness/tingling, no difficulty with ambulation, no sensory or motor deficits Psychiatric: No depression or anxiety symptoms Endocrine: No fatigue, No weight changes Integumentary: No itch, No rash Physical exam: General: awake, alert, no apparent distress Head: Normocephalic, atraumatic ENT: PERRL, EOMI, no pharyngeal exudate, mucous membranes moist Chest: Clear to auscultation, on room air, no adventitious breath sounds Cardiac: Irregularly irregular, no murmur, no JVD Abdominal: + obese, NABS x 4, NTTP, no rebound tenderness or guarding Extremities: Normal inspection, no peripheral edema or erythema, calfs nontender to palpation Psych: Normal mood and affect Neuro: AAO x 3, strength intact bilaterally and related 5/5, no motor deficits, speech is clear, no peripheral sensory deficits Hospital Course H&P per Dr. Alejandro Crockett History of Present Illness Source: patient, family, hospital records 40 yo male with medical history of pre-diabetes, presented to the ED after having a syncopal episode at work. No history of syncope. The patient had been standing for approximately one hour when he started to feel light headed and dizzy and then passed out. Witnesses saw the fall, he struck his head on concrete. He was unconscious for approximately 20 seconds and then woke up. No tonic clonic activity witnessed. He was oriented completely when he woke, he had a mild headache from hitting his head. No chest pain or palpitations. He denies any recent illnesses. He has been eating well, even recently he has been on a low carbohydrate diet. Never has any chest pain or palpitations when he exerts himself. His mother has a history of atrial fibrillation. No personal history of congenital heart disease. He drinks alcohol but no binge drinking recently, had a glass of red wine last night. Physical exam Date Time Temp Pulse Resp B/P Pulse Ox O2 Delivery O2 Flow Rate FiO2 05/08/16 14:00 36.9 74 20 141/86 98 Room Air 05/08/16 13:39 84 18 116/78 97 Room Air 05/08/16 13:28 87 05/08/16 12:29 77 20 123/81 97 Room Air 05/08/16 11:34 90 18 131/93 96 Room Air 05/08/16 11:07 85 05/08/16 11:02 96 Room Air 05/08/16 11:02 96 Room Air 05/08/16 11:02 36.5 87 18 131/93 96 Room Air General Appearance: WD/WN, no apparent distress Head: normocephalic, atraumatic Eyes: normal inspection, EOMI, sclerae normal ENT: normal ENT inspection, hearing grossly normal, pharynx normal Neck: supple, no adenopathy, no JVD, trachea midline Respiratory/Chest: chest non-tender, lungs clear, normal breath sounds, no respiratory distress, no accessory muscle use Cardiovascular: no edema, no gallop, no JVD, no murmur, normal peripheral pulses, + irregularly irregular Abdomen/GI: normal bowel sounds, non tender, soft, no organomegaly Back: normal inspection, no CVA tenderness, no muscle spasm, normal range of motion Extremities/Musculoskelatal: normal inspection, no calf tenderness, normal capillary refill, no pedal edema, normal range of motion Neurologic/Psych: director of curriculum II-XII nml as tested, no motor/sensory deficits, alert, normal mood/affect, normal reflexes, oriented x 3 Skin: normal color, warm/dry, no rash Lymphatic: no adenopathy Hospital course: 40 yo male presenting with syncopal episode and found to have atrial fibrillation on EKG. It is unknown if the patient was in RVR when syncope occured, however it plausible, since being admitted he has not been in rapid ventricular rate. The patient denies any acute complaints. Cardiology has been on board and echocardiogram was completed well inpatient which showed normal valvular and wall motion function. Anticoagulation was discussed with the patient. He is in agreement to starting Roby with 5 mg twice a day, and plans for follow-up with cardiology within 1 week to have an outpatient Holter monitor test. Plans from cardiology standpoint are to cardiovert him within 4 weeks New onset atrial fibrillation: unclear etiology in otherwise healthy 40 yo - TSH normal, trop negative x 2 sets, Lyme screen negative - normal K and renal function - cardiology on board-started anticoagulation with eliquis 5 mg twice a day - plan for follow up within the office in 1 week, cards to set up event recorder as an outpatient, plan to cardiovert him in 4 weeks. - ECHO is within normal limits Syncope: suspect due to arrhythmia, could have had RVR at time of syncope - CT head without bleeding, no focal neurologic deficits,no indication for MRI - Trop and CKMB negative x 2 sets, no other cardiac symptoms including no chest pain, no flutter, no shortness of breath, no dyspnea on exertion - orthostatic vitals have been negative DVT prophylaxis: Lovenox, oob CODE STATUS: FULL code Disposition: From home, discharge to home today Total Time Spent: Greater than 30 minutes This includes examination of the patient, discharge planning, medication reconciliation, and communication with other providers. Discharge Instructions Please refer to the electronic Patient Visit Report (Discharge Instructions) for additional information. Follow-Up Follow up with your Primary Care Provider within 1 week. Follow-up with cardiology within 1-2 weeks. Additional Copies To Gustavo Cruz M.D.
[2016-05-09] MEDS ORDERED: APIX1TAB3 PO (12:53)
[2016-05-09] MEDS ORDERED: METO1TAB66 PO (13:53)
[2016-05-09] MEDS ORDERED: METOPROLOL SUCC 50MG EXT REL TAB PO STA (13:59)
[2016-07-12] MEDS ORDERED: MULTTAB58 PO (13:48)
[2016-07-12] MEDS ORDERED: APIX1TAB3 PO (13:48)
== END 2016-05-09 15:22 | disposition home or self-care (01) ==
LOC: ENRESERVDT → ENRESERVTM → EDBD 10:58 → C.EDC 10:59 → C.2T 12:46
PROVIDERS: ADMIT Internal Medicine; ATTEND Internal Medicine
DX: I48.91 Unspecified atrial fibrillation (principal); R55 Syncope and collapse; R73.03 Prediabetes; E66.9 Obesity, unspecified; Z87.442 Personal history of urinary calculi; Z82.49 Family history of ischemic heart disease and other diseases of the circulatory system; Z80.1 Family history of malignant neoplasm of trachea, bronchus and lung

== ENCOUNTER → 2016-07-13 | Day surgery (SDC) | payer BC ==
[~2016-07-13] VITALS: Ht 177.8 cm; Wt 108.2 kg
[~2016-07-13] MED LIST: APIX1TAB3 PO; CHOL1000 PO; LIDOCAINE HCL 2% 2 ML VIAL (20MG/ML) ONE; METO-452 PO; MISCCAP80 PO; MULTTAB58 PO; PROPOFOL IV EMULSION 10 MG/ML 20 ML VIAL IV ONE
[2016-07-13 07:00] VITALS: BP 123/92; PULSE 71; TEMP 36.6; O2SAT 94; Ht 177.8 cm; Wt 108.2 kg
[2016-07-13 07:30] VITALS: BP 127/72; PULSE 100; O2SAT 98
[2016-07-13 07:36] VITALS: BP 129/97; PULSE 98; O2SAT 98
[2016-07-13 07:37] VITALS: BP 127/98; PULSE 86; O2SAT 98
--- NOTE | 2016-07-13 07:49 | Anesthesiology Progress Note ---
Anesthesia Post Op Note Date & Time July 13, 2016 at 07:50 Vital Signs Pain Intensity: 0 Vital Signs Past 12 Hours Date Time Temp Pulse Resp B/P Pulse Ox O2 Delivery O2 Flow Rate FiO2 07/13/16 07:37 86 16 127/98 98 Nasal Cannula 4 07/13/16 07:36 98 16 129/97 98 Nasal Cannula 4 07/13/16 07:30 100 16 127/72 98 Nasal Cannula 4 07/13/16 07:00 36.6 71 16 123/92 94 Room Air Notes Mental Status: alert / awake / arousable, participated in evaluation Pt Amnestic to Procedure: Yes Nausea / Vomiting: adequately controlled Pain: adequately controlled Airway Patency, RR, SpO2: stable & adequate BP & HR: stable & adequate Hydration State: stable & adequate Anesthetic Complications: no major complications apparent
--- NOTE | 2016-07-13 07:50 | History & Physical Bridge Note ---
H&P Re-Evaluation Bridge Note: I have examined the patient, reviewed the History & Physical and in the interval since the performance of the History & Physical I have noted the following changes of clinical significance: No changes noted
--- NOTE | 2016-07-13 07:52 | Cardiology Procedure Brief Nt ---
Preliminary Cardiology Note Procedure Date July 13, 2016. Pre-Procedure Diagnosis Afib Post-Procedure Diagnosis Afib Procedure(s) Performed Cardioversion Check Embosser Lorena Flame Channeler(s) none Estimated Blood Loss none Preliminary Findings Back to NSR with 2 shocks x 200 joules biphasic sync mode Recommendations no change in meds Specimens none Complication(s) None Disposition
--- NOTE | 2016-07-13 07:54 | Discharge Instructions ---
Discharge Instructions Procedure Procedure Date: July 13, 2016. Reason for Visit: Afib with successful cardioversion. Discharge Discharge Date: July 13, 2016. Discharge Diagnosis: Afib Last Recorded Wt (Kilograms): 108.2 Anesthesia Post Anesthesia Instructions: If you have had IV Sedation: * Do not drive today. * Do not make important decisions or sign legal documents today. * Heart Rate < 50 beats per minute * For nausea and vomiting use only clear liquids such as: tea, soda, bouillon until nausea subsides, then gradually increase diet as tolerated. * If you have any concerns or questions, call your surgeon's office. If physician is unavailable and it is an emergency, call 911 or go to the nearest emergency room. Instructions Activity Recommendations: limitations Recommended Home Diet: no limitations Allergies: Coded Allergies: No Known Allergies (Unverified , 05/08/16) Follow Up Additional Instructions: ACTIVITY RECOMMENDATIONS: * May resume driving tomorrow. SPECIAL CARE: * May apply burn ointment for skin irritation. * Please contact physician for any lightheadedness, dizziness or palpitations. Reyes Fuchs Recommendations: Call your doctor if: * Pain not relieved by tylenol * You have any unanswered questions or concerns. Your Doctors Instructions noted above were prepared by provider Wali Carrillo. Patient Signature Section: Patient Instructions Signature Page Lamberto Martell Patient (or Guardian) Signature/Date: I have read and understand the instructions given to me by my caregivers. Caregiver/RN/Doctor Signature/Date: The above-named patient and/or guardian has received patient instructions on this date. + Original Patient Signature Page (only) stays with chart. Please make copy for patient.
--- NOTE | 2016-07-13 08:35 | CARDIOVERSION ---
DATE OF OPERATION: 07/13/2016 DATE OF CARDIOVERSION: 07/13/2016. INDICATIONS: Atrial fibrillation. The patient has been on metoprolol and apixaban as an outpatient. He has been on apixaban greater than 3 weeks prior to the planned cardioversion. ANESTHESIA PROVIDED: Sedation with propofol. Once the patient was adequately sedated, he was shocked twice with 200 joules in a sync biphasic mode with pentecostalism of normal sinus rhythm. He tolerated the procedure well. He was answering all questions and moving his extremities at the end of the procedure. There were no complications. His medications will remain the Same including his metoprolol 50 mg b.i.d. and his apixaban 5 mg b.i.d. I attest to the content of the Intraoperative Record and any orders documented therein. Any exceptio ns are noted below.
[2016-07-13 08:45] VITALS: BP 140/68; PULSE 72; O2SAT 94
== END | disposition home or self-care (01) ==
LOC: C.CATH 06:30
PROVIDERS: ATTEND Internal Medicine Cardiovascular Disease
DX: I48.91 Unspecified atrial fibrillation (principal); R55 Syncope and collapse; G47.33 Obstructive sleep apnea (adult) (pediatric); Z87.442 Personal history of urinary calculi; R73.03 Prediabetes